=== PATIENT | female | born 1955 | race Caucasian/White ===

== ENCOUNTER → 2016-04-16 | Outpatient (CLI) | payer BC ==
[~2016-04-16] MED LIST: ALLDSR60 PO; CHOL2000 PO; CIPR-255 PO; CLON0.5T3 PO; DYZ PO; FLNIN NAE; FLUO40CA8 PO; FLUT0.15 NAE; FURO-85 PO; GLUT500C4 PO; LORA10TA57 PO; METH118C PO; METR500T PO; MISCCAP80 PO; OMEG10007 PO; PENT100C6 PO
[2016-04-16 17:17] LABS: COMPLETE YES; EOS % 0.7 %; IG% 0.2 %; LYMPH % 12.7 %; LYMPH ABS # 0.56 K/uL (1.2-3.4); MEAN CELL VOLUME 97.9 fL (80-100); MEAN CORPUSCULAR HEMOGLOBIN 32.5 pg (25-34); MEAN CORPUSCULAR HGB CONC 33.2 g/dl (32-36); MEAN PLATELET VOLUME 12.2 fL (7.4-10.4); MONO % 8.1 %; NEUT % 78.3 %; PLATELET COUNT 185 K/uL (130-400); RED BLOOD COUNT 3.88 M/uL (4.2-5.4); WHITE BLOOD COUNT 4.42 K/uL (4.8-10.8)
[2016-04-16 17:24] LABS: URINE APPEARANCE CLOUDY (CLEAR); URINE BILIRUBIN NEG (NEG); URINE COLOR GREEN; URINE NITRITE NEG (NEG); URINE PH 6.5 (4.5-7.5); URINE SPECIFIC GRAVITY 1.022 (1.000-1.030); UROBILINOGEN NEG (NEG)
[2016-04-16 17:29] LABS: MANUAL MICROSCOPIC REQUIRED? NO; REVIEW REQ? NO
[2016-04-16 17:31] LABS: ALT/SGPT 23 U/L (12-78); BLOOD UREA NITROGEN 16 mg/dl (7-18); BUN/CREATININE RATIO 18.5 (10-20); CALCIUM 8.2 mg/dl (8.5-10.1); CARBON DIOXIDE 24 mmol/L (21-32); CHLORIDE 102 mmol/L (98-107); CREATININE 0.87 mg/dl (0.60-1.20); GLUCOSE 99 mg/dl (70-99); POTASSIUM 3.7 mmol/L (3.5-5.1); SODIUM 135 mmol/L (136-145)
[2016-04-16 17:33] LABS: ALB/GLOB RATIO 0.8 (0.9-2); ALKALINE PHOSPHATASE 38 U/L (45-117); AST/SGOT 15 U/L (15-37)
== END | disposition home or self-care (01) ==
LOC: C.LABBC 14:26
PROVIDERS: ATTEND Internal Medicine Geriatric Medicine
DX: R10.814 Left lower quadrant abdominal tenderness (principal)

== ENCOUNTER → 2016-04-16 | Outpatient (CLI) | payer BC ==
[~2016-04-16] MED LIST changes: +OPTIRAY 320 IV PRN
--- NOTE | 2016-04-16 17:45 | DIAGNOSTIC IMAGING REPORT ---
ABDOMEN AND PELVIS CT WITH IV AND ORAL CONTRAST CT DOSE: 330.30 mGy.cm HISTORY: Flank pain R10.814 Abdominal tenderness, LLQ (left lower quadrant)R/o diver TECHNIQUE: Multiaxial CT images of the abdomen and pelvis were performed following the use of intravenous and oral contrast. COMPARISON STUDY: 10/24/2015 FINDINGS: The lung bases are clear. The liver, spleen, gallbladder, pancreas, kidneys, and adrenal glands are within normal limits. No bowel wall thickening or obstruction. The pelvic organs are unremarkable. No suspicious lytic or blastic osseous lesions. IMPRESSION: No significant abnormality identified within the abdomen or pelvis. No change from prior Electronically signed by: Jeyson Almanzar M.D. 04/16/2016 5:44 PM Dictated Date/Time: 04/16/2016 5:42 PM
== END | disposition home or self-care (01) ==
LOC: C.CTS 15:15
PROVIDERS: ATTEND Internal Medicine Geriatric Medicine
DX: R10.814 Left lower quadrant abdominal tenderness (principal)

== ENCOUNTER → 2016-05-05 | Outpatient (CLI) | payer BC ==
[~2016-05-05] MED LIST changes: -OPTIRAY 320 IV PRN
--- NOTE | 2016-05-05 15:27 | DIAGNOSTIC IMAGING REPORT ---
MRI left knee LEFT LOWER EXT JOINT WITHOUT CLINICAL HISTORY: L KNEE PAIN pain TECHNIQUE: MRI multi axial acquisition COMPARISON STUDY: None FINDINGS: Signal characteristics the osseous structures are unremarkable throughout. Anterior and posterior cruciate ligaments are intact. There is moderate edema of the infrapatellar fat pad. Mild degree of fat impingement may be present. There is trace amount of fat edema deep to the lateral collateral ligament at the site of discomfort. I evaluation of menisci shows the medial meniscus to be unremarkable in configuration. Lateral meniscus shows a hairline horizontal tear at the mid aspect. There is very slight truncation of the mid lateral meniscus. Collateral ligaments are intact. Medial lateral or lateral patellar retinaculum appear unremarkable. Small subchondral degenerative cysts at the level of the tibial spines. IMPRESSION: 1. Horizontal tear mid aspect lateral meniscus associated with slight apical truncation 2. Moderate edema of the infrapatellar fat pad raising the possibility of a mild degree of fatty impingement. 3. Small degenerative subchondral cyst medially deep to the tibial spines 3. Electronically signed by: Jeyson Almanzar M.D. 05/05/2016 3:26 PM Dictated Date/Time: 05/05/2016 3:20 PM
== END | disposition home or self-care (01) ==
LOC: C.MRIBC 13:50
PROVIDERS: ATTEND Orthopaedic Surgery
DX: M25.562 Pain in left knee (principal); S83.282A Other tear of lateral meniscus, current injury, left knee, initial encounter; X58.XXXA Exposure to other specified factors, initial encounter; R60.0 Localized edema; M85.462 Solitary bone cyst, left tibia and fibula

== ENCOUNTER → 2016-09-29 | Outpatient (CLI) | payer BC | END | disposition home or self-care (01) | LOC: C.LABSPEC 17:03 | PROVIDERS: ATTEND Urology | DX: R35.0 Frequency of micturition (principal); R39.15 Urgency of urination; N39.0 Urinary tract infection, site not specified ==

== ENCOUNTER → 2016-09-30 | Outpatient (CLI) | payer BC ==
[2016-09-30 13:31] LABS: HEMATOCRIT 37.3 % (37-47); MEAN CELL VOLUME 99.7 fL (80-100); MEAN CORPUSCULAR HEMOGLOBIN 33.4 pg (25-34); MEAN CORPUSCULAR HGB CONC 33.5 g/dl (32-36); MEAN PLATELET VOLUME 12.4 fL (7.4-10.4); PLATELET COUNT 172 K/uL (130-400); RED BLOOD COUNT 3.74 M/uL (4.2-5.4); WHITE BLOOD COUNT 3.91 K/uL (4.8-10.8)
== END | disposition home or self-care (01) ==
LOC: C.LAB1850 12:13
PROVIDERS: ATTEND Physician Assistant
DX: R10.814 Left lower quadrant abdominal tenderness (principal)

== ENCOUNTER 2016-10-01 17:23 | Emergency (ER) | payer BC ==
[~2016-10-01] VITALS: Ht 160 cm; Wt 71.9 kg
[~2016-10-01 17:23] MED LIST changes: -CHOL2000 PO; -CIPR-255 PO; -CLON0.5T3 PO; -FLUT0.15 NAE; -FURO-85 PO; -GLUT500C4 PO; -LORA10TA57 PO; -METH118C PO; -METR500T PO; -MISCCAP80 PO; -OMEG10007 PO; -PENT100C6 PO
[2016-10-01 17:28] VITALS: TEMP 36.7; Ht 160 cm; Wt 71.9 kg
[2016-10-01] MEDS ORDERED: FENTANYL CITRATE INJ 50 MCG/1 ML 2 ML VIAL IV STA (17:44)
[2016-10-01] MEDS ORDERED: SODIUM CHLORIDE 0.9% 1000ML 1,000 ML IV STA (17:44)
--- NOTE | 2016-10-01 17:50 | EMERGENCY ROOM VISIT NOTE ---
History Report prepared by [place]: Kelly Morrissey Under the Supervision of: Dr. Ruth Orellana D.O. First contact with patient: 17:33 Chief Complaint: ABDOMINAL PAIN Stated Complaint: LOWER ABDOMINAL PAIN, AND BACK PAIN Nursing Triage Summary: Pt reports LLQ pain around to back. Hx of "bladder issues and diverticulitis. They were trying to get me in for a CT, but they couldn't get it through the insurance. They did a urine test and it was negative. They did bloodwork too." Constipation. Pain began end of last week. History of Present Illness The patient is a 61 year old female who presents to the Emergency Room with complaints of persistent left lower quadrant abdominal pain for the past several days. She rates her discomfort as a 6/10 in severity and notes it radiates around to her back. She describes the pain as feeling "dull" in nature and reports Aleve and a heating pad have provided only minimal relief. She reports she saw her primary care physician's office last week for her pain, Dr. Cruz with [facility], and they were trying to get her scheduled for a CT scan, but were unable to get it approved by her insurance, so they referred her to the ED. This past Thursday, 3 days ago, the patient experienced "projectile vomiting" after eating shrimp. She also experienced diarrhea, but states now she feels "backed up", though she did have a bowel movement this morning. She denies any melena, hematochezia or urinary symptoms. The patient does complain of experiencing the chills and a low grade fever. She denies any cough or cold symptoms. She admits to a history of diverticulitis and interstitial cystitis. Her last episode of diverticulitis was approximately 1 year ago and she was treated with Cipro and Flagyl. Her last colonoscopy was approximately 18 months ago. Source of History: patient Onset: past several days Position: abdomen Symptom Intensity: 6/10 Quality: dull Timing: other (persistent) Modifying Factors (Relieving): ibuprofen (Aleve), heat Associated Symptoms: + fevers, + chills, + nausea, + vomiting, + diarrhea, No cough (cough or cold symptoms), No melena, No hematochezia, No urinary symptoms Review of Systems See HPI for pertinent positives & negatives. A total of 10 systems reviewed and were otherwise negative. Past Medical & Surgical Medical Problems: (1) Interstitial cystitis Surgical Problems: (1) History of hysterectomy Social History Smoking Status: Former Smoker Alcohol Use: occasionally Drug Use: none Marital Status: Housing Status: lives with family Occupation Status: employed Current/Historical Medications Scheduled Cholecalciferol (Vitamin D3), 1 CAP PO DAILY Ciprofloxacin Hcl (Cipro), 500 MG PO BID Fish Oil ([place]-3), 1 CAP PO DAILY Fluoxetine (Prozac), 40 MG PO DAILY Fluticasone Propionate (Nasal) (Flonase Allergy Relief), 2 SPRAYS HARRY DAILY Glutamine (L-Glutamine), 1 CAP PO DAILY Loratadine & Pseudoephedrine (Claritin-D 24 Hour), 1 TAB PO DAILY Metronidazole (Flagyl), 500 MG PO TID Pentosan Polysulfate Sodium (Elmiron), 100 MG PO DAILY Probiotic Product (Probiotic), 1 CAP PO DAILY Scheduled PRN Clonazepam (Klonopin), 0.5 TAB PO for Anxiety/Insomnia Furosemide (Lasix), 20 MG PO for FLUID Jxznmxnuzac-Xxinc-Rshkudwkc Bl (Uribel), 1 CAP PO QID PRN for Bladder pain Allergies Coded Allergies: Acetaminophen (Unverified Allergy, Severe, ., 10/01/16) Citalopram (Unverified Allergy, Severe, FATIGUE, 10/01/16) Doxycycline (Unverified Allergy, Severe, ., 10/01/16) Orlistat (Unverified Allergy, Severe, RASH, 10/01/16) Oxycodone (Unverified Allergy, Severe, ., 10/01/16) Sarai (Verified Allergy, Intermediate, RASH, 10/01/16) FLUSHED, RASH Egg (Verified Allergy, Unknown, GI Symptoms, 10/01/16) Erythromycin (Verified Allergy, Unknown, 10/01/16) Derivative Milk (Verified Adverse Reaction, Intermediate, GI SYMPTOMS, 10/01) Gluten (Verified Adverse Reaction, Intermediate, GI SYMPTOMS, 10/01/16) Milk (Verified Adverse Reaction, Intermediate, GI SYMPTOMS, 10/01/16) Physical Exam Vital Signs Date Time Temp Pulse Resp B/P (MAP) Pulse Ox O2 Delivery O2 Flow Rate FiO2 10/01/16 19:26 66 18 148/84 98 Room Air 10/01/16 17:28 36.7 71 18 142/97 98 Room Air Physical Exam GENERAL: Patient is alert, well appearing, well nourished, no distress, non- toxic EYE EXAM: normal conjunctiva, PERRL and EOM's grossly intact OROPHARYNX: no exudate, no erythema, lips, buccal mucosa, and tongue normal and mucous membranes are moist NECK: supple, no nuchal rigidity, no adenopathy, non-tender LUNGS: Clear to auscultation. Normal chest wall mechanics HEART: no murmurs, S1 normal and S2 normal ABDOMEN: abdomen soft, mild left lower quadrant tenderness, normo-active bowel sounds, no masses, no rebound or guarding. BACK: Back is symmetrical on inspection and there is no deformity, no midline tenderness, no CVA tenderness. SKIN: no rashes and no bruising UPPER EXTREMITIES: upper extremities are grossly normal. LOWER EXTREMITIES: No pitting edema. NEURO EXAM: Normal sensorium, cranial nerves II-XII grossly intact, normal speech, no gross weakness of arms, no gross weakness of legs. No drift. Finger to nose intact. Gross sensation intact. Medical Decision & Procedures ER Provider Diagnostic Interpretation: Radiology results have been interpreted by the radiologist and reviewed by me. ABD/PELVIS IV CONTRAST ONLY CT DOSE: 384.11 mGy.cm HISTORY: Pain ll. Pain TECHNIQUE: Multiaxial CT images of the abdomen and pelvis were performed following the use of intravenous contrast. A dose lowering technique was utilized adhering to the principles of ALARA. COMPARISON STUDY: 04/16/2016 FINDINGS: Lung bases are clear. Liver spleen and pancreas are unremarkable. Kidneys negative for necrosis. Upper abdominal bowel pattern is nonobstructive. The appendix is normal. Findings of mild wall thickening of the sigmoid and distal descending colonic region. Mild diverticulitis is considered. There is no evidence for abscess collection or obstructive change. Bladder is midline. There is no free fluid within the pelvic cul-de-sac. IMPRESSION: 1. Mild sigmoid acute diverticulitis. 2. No evidence for obstruction, collection, or abscess. 3. Otherwise negative study The above report was generated using voice recognition software. It may contain grammatical, syntax or spelling errors. Electronically signed by: Jeyson Almanzar M.D. 10/01/2016 7:15 PM Laboratory Results 10/01/16 17:50 Red Blood Count 3.55, Mean Corpuscular Volume 99.4, Mean Corpuscular Hemoglobin 32.4, Mean Corpuscular Hemoglobin Concent 32.6, Mean Platelet Volume 11.5, Neutrophils (%) (Auto) 62.0, Lymphocytes (%) (Auto) 27.1, Monocytes (%) (Auto) 8.5, Eosinophils (%) (Auto) 1.8, Basophils (%) (Auto) 0.2, Neutrophils # (Auto) 2.83, Lymphocytes # (Auto) 1.24, Monocytes # (Auto) 0.39, Eosinophils # (Auto) 0.08, Basophils # (Auto) 0.01 10/01/16 17:50 Test 10/01/16 17:50 10/01/16 18:10 White Blood Count 4.57 K/uL (4.8-10.8) Red Blood Count 3.55 M/uL (4.2-5.4) Hemoglobin 11.5 g/dL (12.0-16.0) Hematocrit 35.3 % (37-47) Mean Corpuscular Volume 99.4 fL (80-100) Mean Corpuscular Hemoglobin 32.4 pg (25-34) Mean Corpuscular Hemoglobin Concent 32.6 g/dl (32-36) Platelet Count 186 K/uL (130-400) Mean Platelet Volume 11.5 fL (7.4-10.4) Neutrophils (%) (Auto) 62.0 % Lymphocytes (%) (Auto) 27.1 % Monocytes (%) (Auto) 8.5 % Eosinophils (%) (Auto) 1.8 % Basophils (%) (Auto) 0.2 % Neutrophils # (Auto) 2.83 K/uL (1.4-6.5) Lymphocytes # (Auto) 1.24 K/uL (1.2-3.4) Monocytes # (Auto) 0.39 K/uL (0.11-0.59) Eosinophils # (Auto) 0.08 K/uL (0-0.5) Basophils # (Auto) 0.01 K/uL (0-0.2) RDW Standard Deviation 47.5 fL (36.4-46.3) RDW Coefficient of Variation 12.9 % (11.5-14.5) Immature Granulocyte % (Auto) 0.4 % Immature Granulocyte # (Auto) 0.02 K/uL (0.00-0.02) Anion Gap 4.0 mmol/L (3-11) Est Creatinine Clear Calc Drug Dose 65.3 ml/min Estimated GFR () 83.9 Estimated GFR (Non- 72.4 BUN/Creatinine Ratio 22.5 (10-20) Calcium Level 8.4 mg/dl (8.5-10.1) Total Bilirubin 0.2 mg/dl (0.2-1) Aspartate Amino Transf (AST/SGOT) 18 U/L (15-37) Alanine Aminotransferase (ALT/SGPT) 24 U/L (12-78) Alkaline Phosphatase 62 U/L (45-117) Total Protein 7.1 gm/dl (6.4-8.2) Albumin 3.3 gm/dl (3.4-5.0) Globulin 3.8 gm/dl (2.5-4.0) Albumin/Globulin Ratio 0.9 (0.9-2) Urine Color YELLOW Urine Appearance CLEAR (CLEAR) Urine pH 6.5 (4.5-7.5) Urine Specific [place] 1.018 (1.000-1.030) Urine Protein NEG (NEG) Urine Glucose (UA) NEG (NEG) Urine Ketones NEG (NEG) Urine Occult Blood NEG (NEG) Urine Nitrite NEG (NEG) Urine Bilirubin NEG (NEG) Urine Urobilinogen NEG (NEG) Urine Leukocyte Esterase NEG (NEG) Laboratory results per my review. Medications Administered Medications (Trade) Dose Ordered Sig/Isabell Route Start Time Stop Time Status Last Admin Dose Admin Sodium Chloride 1,000 ml @ 999 mls/hr Q1H1M STAT IV 10/01/16 17:44 10/01/16 18:44 DC 10/01/16 18:10 999 MLS/HR Fentanyl Citrate (Fentanyl Inj) 50 mcg NOW STAT IV 10/01/16 17:44 10/01/16 17:46 DC 10/01/16 18:10 50 MCG Ciprofloxacin (Cipro Tab) 500 mg NOW STAT PO 10/01/16 19:37 10/01/16 19:38 DC 10/01/16 19:45 500 MG Metronidazole (Flagyl Tab) 500 mg NOW STAT PO 10/01/16 19:37 10/01/16 19:38 DC 10/01/16 19:45 500 MG ED Course 1735: The patient was evaluated in room A11. A complete history and physical exam was performed. 1743: Fentanyl 50 mcg IV, NSS 1000 ml @ 999 mls/hr IV. 1929: I reevaluated the patient. She is resting comfortably. I discussed her test results and discharge instructions and she verbalized complete understanding and agreement. 1936: Flagyl 500 mg PO, Cipro 500 mg PO. 1944: [place] 5/325 mg 1 homepack PO. Medical Decision Medication Reconciliation: I attest that I have personally reviewed the patient' s current medication list. Blood pressure screening: Patient was found to have a slightly elevated blood pressure due to circumstances. I do not believe that the patient requires hypertension monitoring. Prior records/ancillary studies reviewed. Triage Nursing notes reviewed. The patient's history was concerning for abdominal pain. Differential diagnosis: Etiologies such as appendicitis, diverticulitis, PUD, biliary pathology, UTI, pancreatitis, obstruction, mesenteric ischemia, aortic pathology, infections, inflammatory bowel disease, renal colic, as well as others were entertained. Patient well-appearing here, no evidence of perforation or abscess. Vital signs stable and patient without fever or vomiting here. No significant leukocytosis, doubt bacteremia/sepsis. Patient were findings of diverticulitis , able to tolerate by mouth at bedside and will be started on antibiotics. Discussed with patient close follow-up with family doctor as well as GI. Discussed use of medications at home, discussed low fiber/low residue diet. Discussed symptoms to watch and return for, she verbalized understanding was agreeable with plan. No evidence of additional concurrent or vascular pathology. Impression Primary Impression: Sigmoid diverticulitis Additional Impression: Abdominal pain Scribe Attestation The scribe's documentation has been prepared under my direction and personally reviewed by me in its entirety. I confirm that the note above accurately reflects all work, treatment, procedures, and medical decision making performed by me. Departure Information Dispostion Home / Self-Care Prescriptions Metronidazole (FLAGYL) 500 Mg Tab 500 MG PO TID, #21 TAB Prov: Ruth Orellana, DO 10/01/16 Ciprofloxacin Hcl (CIPRO) 500 Mg Tab 500 MG PO BID, #14 TAB Prov: Ruth Orellana, DO 10/01/16 Referrals No Doctor, Assigned (PCP) Patient Instructions My [facility] Additional Instructions Please call and follow up with your family doctor and with GI about your diverticulitis. If you develop any vomiting, fevers, worsening pain, notice blood with a bowel movement, or you have any other new or concerning symptoms, please return to the emergency room. Please take the antibiotics as prescribed and consider using a probiotic while you are taking them. Please eat a low fiber diet until you complete the antibiotics. If you use the stronger pain medication, please do not take it and drive, please monitor for constipation. Problem Qualifiers Additional Impression: Abdominal pain Abdominal location: left lower quadrant Qualified Codes: R10.32 - Left lower quadrant pain
[2016-10-01] MEDS ORDERED: OPTIRAY 320 IV PRN (18:00)
[2016-10-01 18:06] LABS: BASO % 0.2 %; BASO ABS # 0.01 K/uL (0-0.2); COMPLETE YES; EOS % 1.8 %; HEMATOCRIT 35.3 % (37-47); IG% 0.4 %; LYMPH % 27.1 %; LYMPH ABS # 1.24 K/uL (1.2-3.4); MEAN CELL VOLUME 99.4 fL (80-100); MEAN CORPUSCULAR HEMOGLOBIN 32.4 pg (25-34); MEAN CORPUSCULAR HGB CONC 32.6 g/dl (32-36); MEAN PLATELET VOLUME 11.5 fL (7.4-10.4); MONO % 8.5 %; PLATELET COUNT 186 K/uL (130-400); RED BLOOD COUNT 3.55 M/uL (4.2-5.4); WHITE BLOOD COUNT 4.57 K/uL (4.8-10.8)
[2016-10-01 18:27] LABS: BUN/CREATININE RATIO 22.5 (10-20); CALCIUM 8.4 mg/dl (8.5-10.1); CREATININE 0.87 mg/dl (0.60-1.20); POTASSIUM 4.6 mmol/L (3.5-5.1)
[2016-10-01 18:30] LABS: ALB/GLOB RATIO 0.9 (0.9-2)
[2016-10-01] MEDS ORDERED: CLON0.5T3 PO (18:40)
[2016-10-01] MEDS ORDERED: FLUT0.15 NAE (18:40)
[2016-10-01] MEDS ORDERED: FURO-85 PO (18:40)
[2016-10-01] MEDS ORDERED: PENT100C6 PO (18:40)
[2016-10-01] MEDS ORDERED: CHOL2000 PO (18:40)
[2016-10-01] MEDS ORDERED: METH118C PO (18:40)
[2016-10-01] MEDS ORDERED: LORA10TA57 PO (18:40)
[2016-10-01] MEDS ORDERED: GLUT500C4 PO (18:40)
[2016-10-01] MEDS ORDERED: MISCCAP80 PO (18:40)
[2016-10-01] MEDS ORDERED: OMEG10007 PO (18:40)
[2016-10-01 19:08] LABS: URINE APPEARANCE CLEAR (CLEAR); URINE BILIRUBIN NEG (NEG); URINE COLOR YELLOW; URINE NITRITE NEG (NEG); URINE PH 6.5 (4.5-7.5); URINE SPECIFIC GRAVITY 1.018 (1.000-1.030); UROBILINOGEN NEG (NEG); ZZUR CULT IF INDIC CLEAN CATCH NO
[2016-10-01 19:11] LABS: MANUAL MICROSCOPIC REQUIRED? NO; REVIEW REQ? NO
--- NOTE | 2016-10-01 19:16 | DIAGNOSTIC IMAGING REPORT ---
ABD/PELVIS IV CONTRAST ONLY CT DOSE: 384.11 mGy.cm HISTORY: Pain ll. Pain TECHNIQUE: Multiaxial CT images of the abdomen and pelvis were performed following the use of intravenous contrast. A dose lowering technique was utilized adhering to the principles of ALARA. COMPARISON STUDY: 04/16/2016 FINDINGS: Lung bases are clear. Liver spleen and pancreas are unremarkable. Kidneys negative for necrosis. Upper abdominal bowel pattern is nonobstructive. The appendix is normal. Findings of mild wall thickening of the sigmoid and distal descending colonic region. Mild diverticulitis is considered. There is no evidence for abscess collection or obstructive change. Bladder is midline. There is no free fluid within the pelvic cul-de-sac. IMPRESSION: 1. Mild sigmoid acute diverticulitis. 2. No evidence for obstruction, collection, or abscess. 3. Otherwise negative study The above report was generated using voice recognition software. It may contain grammatical, syntax or spelling errors. Electronically signed by: Jeyson Almanzar M.D. 10/01/2016 7:15 PM Dictated Date/Time: 10/01/2016 7:11 PM
[2016-10-01 19:26] VITALS: BP 148/84; PULSE 66; O2SAT 98
[2016-10-01] MEDS ORDERED: CIPROFLOXACIN 500 MG TAB PO STA (19:37)
[2016-10-01] MEDS ORDERED: METRONIDAZOLE 250 MG TAB PO STA (19:37)
[2016-10-01] MEDS ORDERED: NORCO 5/325MG HOME PACK PO ONE (19:45)
[2016-10-01] MEDS ORDERED: CIPR-255 PO (19:48)
[2016-10-01] MEDS ORDERED: METR500T PO (19:48)
== END 2016-10-01 19:54 | disposition home or self-care (01) ==
LOC: C.EDB 17:23 → C.EDA 19:54
DX: K57.32 Diverticulitis of large intestine without perforation or abscess without bleeding (principal); R10.32 Left lower quadrant pain; Z87.891 Personal history of nicotine dependence; Z79.899 Other long term (current) drug therapy

== ENCOUNTER → 2017-02-16 | Outpatient (CLI) | payer BC ==
[~2017-02-16] MED LIST changes: -ALLDSR60 PO; +CHOL2000 PO; +CIPR-255 PO; +CLON0.5T3 PO; -DYZ PO; -FLNIN NAE; +FLUT0.15 NAE; +FURO-85 PO; +GLUT500C4 PO; +LORA-749 PO; +METH118C PO; +MISCCAP80 PO; +OMEG10007 PO; +PENT100C6 PO
--- NOTE | 2017-02-17 07:54 | MAMMOGRAPHY REPORT ---
BILATERAL DIGITAL SCREENING MAMMOGRAM TOMOSYNTHESIS WITH CAD: 02/16/2017 CLINICAL HISTORY: Routine screening. Patient has no complaints. TECHNIQUE: Breast tomosynthesis in addition to standard 2D mammography was performed. Current study was also evaluated with a Computer Aided Detection (CAD) system. COMPARISON: Comparison is made to exams dated: 02/11/2016 mammogram, 02/06/2015 mammogram, 01/02/2014 mammogram, 12/17/2012 mammogram, 12/15/2011 mammogram, and 12/09/2010 mammogram - [facility]. BREAST COMPOSITION: The tissue of both breasts is almost entirely fatty. FINDINGS: The parenchymal pattern is unchanged. No developing mass, architectural distortion or clus ter of suspicious microcalcifications is seen in either breast. IMPRESSION: ACR BI-RADS CATEGORY 2: BENIGN There is no mammographic evidence of malignancy. A 1 year screening mammogram is recommended. The pa tient will receive written notification of the results. Approximately 10% of breast cancers are not detected with mammography. A negative mammographic report should not delay biopsy if a clinically suggestive mass is present. Meghna Trevino M.D. ay/:02/16/2017 16:20:57 Broadcast Engineer: Noelle SAWYER(Jennifer)(Jacinto)([place]), [facility] letter sent: Normal 1/2 BI-RADS Code: ACR BI-RADS Category 2: Benign
== END | disposition home or self-care (01) ==
LOC: C.MAMM 08:29
PROVIDERS: ATTEND Internal Medicine Geriatric Medicine
DX: Z12.31 Encounter for screening mammogram for malignant neoplasm of breast (principal)

== ENCOUNTER 2017-06-28 10:48 | Emergency (ER) | payer BC, OTHER ==
[~2017-06-28] VITALS: Ht 160 cm; Wt 71.6 kg
[2017-06-28 10:55] VITALS: TEMP 36.7; Ht 160 cm; Wt 71.6 kg
[2017-06-28] MEDS ORDERED: LOSA1TAB PO (11:20)
[2017-06-28] MEDS ORDERED: HYDROCODONE/ACETAMIN 5/325MG TAB PO ONE (11:45)
--- NOTE | 2017-06-28 12:49 | DIAGNOSTIC IMAGING REPORT ---
SINGLE VIEW PELVIS; 2 VIEWS LEFT HIP CLINICAL HISTORY: Fall with left hip pain. FINDINGS: An AP view of the pelvis with AP and frog-leg views of the left hip are correlated with pelvic CT dated 10/01/2016. The skeletal structures are osteopenic. There is no radiographic evidence of fracture involving the hips or bony pelvis. Mild arthritic change and joint space narrowing is seen in the hips. Minimal degenerative sclerosis is present in the sacroiliac joints. The overlying soft tissues are within normal limits. Suture material and small phleboliths are noted in the pelvis. IMPRESSION: Osteopenia with no radiographic evidence of acute fracture involving the hips or bony pelvis. Electronically signed by: Jet Milton M.D. 06/28/2017 12:48 PM Dictated Date/Time: 06/28/2017 12:45 PM
--- NOTE | 2017-06-28 12:52 | DIAGNOSTIC IMAGING REPORT ---
AP CHEST WITH LEFT-SIDED RIB SERIES CLINICAL HISTORY: Fall with left chest wall pain. FINDINGS: An AP upright chest radiograph with 4 additional views from a left-sided rib series is compared to study dated 09/21/2016 and correlated with chest CT dated 03/05/2015. The AP view is degraded by apical positioning. The heart is top normal for projection. The pulmonary vasculature is noncongested. The lungs and pleural spaces are clear. No pneumothorax is seen. The skeletal structures are osteopenic. There is no radiographic evidence of acute/distracted rib fracture on the left-sided rib series. The remainder of the bony thorax is grossly intact. IMPRESSION: 1. The lungs are clear. 2. There is no radiographic evidence of acute/distracted left-sided rib fracture on the rib series. Electronically signed by: Jet Milton M.D. 06/28/2017 12:51 PM Dictated Date/Time: 06/28/2017 12:48 PM
[2017-06-28 14:08] VITALS: BP 128/79; PULSE 77; O2SAT 96
--- NOTE | 2017-06-28 19:09 | EMERGENCY ROOM VISIT NOTE ---
ED Visit Note First contact with patient: 11:25 Chief Complaint: Fall. History of Present Illness: Ms. Guerrero is a 62-year-old white female who is brought into the ED via wheelchair accompanied by her complaining of left hip/pelvic pain and left anterior rib pain following a fall. Patient reports she was drinking alcohol last night and slipped and fell walking down stairs. She reports she fell down 3 wooden stairs onto a concrete slab. She reports before the fall last night she was not experiencing any lightheadedness or dizziness, at the time of the fall she did not strike her head or have a loss of consciousness and since the fall she has had no signs of head injury; her fall was witnessed by her and he confirmed no loss of consciousness. Patient reports since the fall she is having pain over the left hip and the left side of the pelvis around the hip joint and the sacroiliac joint area and left anterior rib. She reports her worst pain is her hip pain. She describes her pain as a sharp and pressure sensation. She rates her discomfort 10/10. Her pain is radiating into the sacroiliac joint area. Her pain worsens with ambulation, palpation of the hip joint, abduction and extension of the hip joint. She has not identified any alleviating factors related to the pain. She has not taken any medications for pain prior to arrival at the hospital. She reports this morning after waking up and trying to walk to the bathroom she did have some nausea but no vomiting. Additionally she reports she is having anterior rib pain under her breast in the area of ribs 4 and 5. She describes this as a sharp discomfort. Her pain is nonradiating. She rates this discomfort 7/10. Her pain worsens with palpation and deep inspiration. She has not identified any alleviating factors related to the pain. She denies any previous hip or rib injuries, thoracic or lumbar back pain, difficulty breathing, shortness of breath, coughing, abdominal pain, lower leg weakness/numbness/tingling. Review of Systems: As noted above in history of present illness. All body systems were reviewed and found to be negative as noted above. Past Medical History: Diverticulitis, sleep apnea, unspecified urinary problems , status post colon resection, hysterectomy and hemorrhoidectomy. Current Medications: Medications Dose Route/Sig Max Daily Dose Days Date Category Cozaar (Losartan Potassium) 25 Mg Tab 25 Mg PO DAILY 06/28/17 Reported Flonase Allergy Relief (Fluticasone Propionate (Nasal)) 50 Mcg/Act Spr 2 Sprays HARRY DAILY 10/01/16 Reported L-Glutamine (Glutamine) 500 Mg Cap 1 Cap PO DAILY 10/01/16 Reported Lasix (Furosemide) 20 Mg Tab 20 Mg PO PRN 10/01/16 Reported Uribel (Lytnmzlhsgx-Ehtjt-Gjpjjdavk Bl) 1 Cap Cap 1 Cap PO QID PRN 10/01/16 Reported Probiotic (Probiotic Product) 1 Cap Cap 1 Cap PO DAILY 10/01/16 Reported Vitamin D3 (Cholecalciferol) 2,000 Unit Cap 1 Cap PO DAILY 10/01/16 Reported Claritin-D 24 Hour (Loratadine & Pseudoephedrine) 1 Tab Tab 1 Tab PO DAILY 10/01/16 Reported Prozac (Fluoxetine HCl) 40 Mg Cap 40 Mg PO DAILY 02/20/14 Reported Allergies to Medications: Doxycycline, erythromycin, oxycodone, citalopram, dairy products. Social History: Patient is currently employed; she lives with her and feels safe in her home environment; she denies tobacco use; she admits to alcohol use. Physical Examination: Vital Signs: Date Time Temp Pulse Resp B/P (MAP) Pulse Ox O2 Delivery O2 Flow Rate FiO2 06/28/17 14:08 77 16 128/79 96 06/28/17 12:33 79 18 126/82 96 Room Air 06/28/17 10:55 36.7 73 18 136/86 96 Room Air GENERAL: 62-year-old female in mild to moderate distress due to pain, nontoxic- appearing, afebrile and hemodynamically stable. NEUROLOGICAL: Awake, alert and oriented to person, place and time. Answering questions appropriately and following commands. Good hand eye coordination. Good short-term and long-term recall. No focal motor or sensory deficits. Cranial nerves II through XII grossly intact. SKIN: Warm, dry and pink. Extremities: Patient has multiple superficial abrasions over every extremity. She has cleaned out these lacerations there is no active bleeding. All of the abrasions appear superficial. HEENT: Atraumatic and normocephalic. Skull: No bony deformity, bony crepitus, swelling or ecchymosis. No raccoons eyes or goodman signs. No drainage from the ears of the nostril; no hemotympanum. Face: No bony deformity, bony crepitus, swelling or ecchymosis. PERRLA. EOMI without nystagmus. No malocclusion. No intraoral trauma. Airway patent. Speech is normal and clear. Trachea midline. No jugular venous distention. BACK: No tenderness over the bony cervical, thoracic and lumbar spines. Full range of motion of the cervical spine. Mild tenderness over the left sacroiliac joint area without bony deformity, bony crepitus, swelling or ecchymosis. THORAX: Lungs sounds are clear to auscultation and equal bilaterally with symmetrical chest wall. No wheezing, rales or rhonchi. Moderate tenderness over ribs 5 and 6 just under the left breast without bony deformity, bony crepitus, swelling, bruising or subcutaneous air. HEART: Regular rate and rhythm. No gallops, rubs or murmurs are appreciated. ABDOMEN: Flat, soft and nontender. Positive bowel sounds in all quadrants. No guarding, rigidity or organomegaly. PELVIS: Stable and nontender to compression and rock. UPPER EXTREMITIES: Moves extremities well on command and with purpose. No tenderness over the shoulders, upper arms, elbows, forearms, wrists or hands. As previously noted multiple superficial abrasions with the most extensive over the posterior aspect of the right elbow. There was no active bleeding or signs of infection at the time of my examination. She had full range of motion in flexion and extension of the elbow and pronation and supination of the forearm against resistance. Throughout the extremity the skin was warm and pink and capillary refill was brisk. She is able to distinguish light sensations through all dermatomes. LOWER EXTREMITY: No gross bony deformity. No shortening or malrotation. Patient has a large contusion just superior to the left hip joint. The whole area is moderately tender to palpation. I do not appreciate any bony deformity or crepitus. Because of pain she refuses to do range of motion exercises at the level of the hip. With her hip stabilized she has full range of motion in flexion and extension of the knee and pronation and supination of the forearm. Throughout both extremities the skin was warm and pink and capillary refill are brisk. She was able to distinguish light sensations to all dermatomes. ED Course: Patient is assessed as noted above. Patient's medication list was reviewed. Because of the patient's pain I did offer her Percocet and she reported that she is allergic to oxycodone but she has used [place] in the past without any adverse or allergic symptoms. Patient was given 1 [place] 5/325 mg tablet for pain and ice for pain and swelling. Pelvis/Bilateral Hip X-Rays: Were read by myself and the radiologist showing no acute fractures or dislocations. Radiologist notes that the bones appear osteopenic. PA Chest with Left Rib X-Rays: Were read by myself and the radiologist showing no acute infiltrates, effusions or pneumothorax. No evidence of left-sided rib fractures. Patient was educated about today's findings and instructed on her treatment plan ; she verbalized understanding and agreement with this plan. Clinical Impression: Fall. Left hip pain. Left rib pain. Multiple abrasions. Disposition: Patient discharged home in stable condition accompanied by her ; prior to departure she was reassessed and subjectively reported she was feeling much better and rated her discomfort 6/10. Plan: Patient reports that she has a history of Toradol and she was encouraged alternate her Toradol every 3 hours with 650 mg of acetaminophen. Additional comfort measures were discussed with the patient including rest, ice and use of walker and/or crutches; patient reports she has a walker and crutches as home. Wound care and signs of infection were discussed with the patient. Patient was encouraged to follow-up with her primary care provider for recheck if no better in 3-4 days. Patient was encouraged return the ED for worsening/uncontrolled pain, any signs of infection or any new/concerning symptoms.
== END 2017-06-28 14:08 | disposition home or self-care (01) ==
LOC: C.EDB 10:49 → C.EDD 14:08
DX: M25.552 Pain in left hip (principal); R07.81 Pleurodynia; T14.8XXA Other injury of unspecified body region, initial encounter; W10.9XXA Fall (on) (from) unspecified stairs and steps, initial encounter; K57.92 Diverticulitis of intestine, part unspecified, without perforation or abscess without bleeding; G47.30 Sleep apnea, unspecified; Z79.899 Other long term (current) drug therapy